=== PATIENT | male | born 1980 | race Hispanic/Latino ===

== ENCOUNTER 2022-06-29 08:42 | Day surgery (SDC) | payer OTHER ==
[2022-06-29] MEDS ORDERED: Bupivacaine/Epinephrine 0.25% 30 ML VIAL ONE (11:04)
[2022-06-29] MEDS ORDERED: Lidocaine 2% Jelly 5 ML TUBE ONE (11:04)
[2022-06-29] MEDS ORDERED: Midazolam HCl 2 mg/2 ml Vial ONE (11:07)
[2022-06-29] MEDS ORDERED: fentaNYL Citrate/PF 100 MCG/2 ML SYRINGE ONE (11:07)
[2022-06-29] MEDS ORDERED: Dexamethasone 20 MG/5 ML VIAL ONE (11:14)
[2022-06-29] MEDS ORDERED: Lidocaine 1% MPF 2 ML VIAL ONE (11:14)
[2022-06-29] MEDS ORDERED: Ondansetron PF 4 MG/2 ML Vial ONE (11:14)
[2022-06-29] MEDS ORDERED: PROPOFOL 200 MG/20 ML VIAL ONE (11:14)
[2022-06-29] MEDS ORDERED: cefOXitin 2 GM VIAL ONE (11:36)
[2022-06-29] MEDS ORDERED: Fentanyl 100 MCG/2 ML VIAL ONE (12:18)
[2022-06-29] MEDS ORDERED: HYDROcodone/Acetaminophen 5/325 mg Tablet ONE (13:08)
== END 2022-06-29 13:45 | disposition home or self-care (01) ==
LOC: SDC 08:42
PROVIDERS: ATTEND Surgery
PROC: 0D9P3ZX Drainage of Rectum, Percutaneous Approach, Diagnostic (ICD-10-PCS; principal; 2022-06-29)
DX: K61.1 Rectal abscess (principal); J45.909 Unspecified asthma, uncomplicated
CPT/HCPCS: 87070; 87205; J0694; J1100; J2250; J2405; J2704; J3010

== ENCOUNTER 2022-08-02 23:25 | Inpatient (IN) | payer OTHER ==
[2022-08-02] MEDS ORDERED: Magnesium 2 GM/50 ML BAG (IN WATER) ONE (23:46)
[2022-08-02] MEDS ORDERED: Terbutaline Sulfate 1 MG/ML VIAL ONE (23:46)
[2022-08-02] MEDS ORDERED: Albuterol Sulfate 2.5 mg/3 ml Neb ONE (23:58)
[2022-08-02] MEDS ORDERED: Albuterol Sulfate 2.5 mg/0.5 ml Neb ONE (23:58)
[2022-08-03] MEDS ORDERED: Ondansetron PF 4 MG/2 ML Vial IVP PRN (02:20)
[2022-08-03] MEDS ORDERED: Acetaminophen 325 MG TAB PO PRN (02:20)
[2022-08-03] MEDS ORDERED: Ondansetron ODT 4 MG TAB PO PRN (02:20)
[2022-08-03] MEDS ORDERED: Albuterol Sulfate 2.5 mg/3 ml Neb NEB PRN (02:21)
[2022-08-03] MEDS ORDERED: Ipratropium Bromide 2.5 ml Neb NEB PRN ×2 (02:21)
[2022-08-03] MEDS ORDERED: Albuterol Sulfate 2.5 mg/3 ml Neb ONE ×2 (03:11→06:14)
[2022-08-03] MEDS ORDERED: Ipratropium Bromide 2.5 ml Neb ONE ×5 (03:11→12:47)
[2022-08-03] MEDS ORDERED: Albuterol Sulfate 2.5 mg/0.5 ml Neb ONE ×2 (03:11→11:21)
[2022-08-03] MEDS: Ipratropium Bromide 2.5 ml Neb NEB SCH ×6 (03:15→19:06)
[2022-08-03] MEDS: Albuterol Sulfate 2.5 mg/3 ml Neb NEB SCH ×4 (03:16→15:05)
[2022-08-03 03:21] LABS: #Lymphocytes 0.5 thou/uL (1.20-3.40); #Neutrophils 11.7 thou/uL (1.40-6.50); %Basophils 0.1 % (0.0-1.0); %Eosinophils 0.1 % (0.0-10.0); %Lymphocytes 4.2 % (21.0-51.0); %Monocytes 0.3 % (0.0-10.0); %Neutrophils 95.3 % (42.0-75.0); Mean Corpuscular HGB CONC 33.1 g/dL (32.0-36.0); Mean Corpuscular Hemoglobin 30.2 pg (27.0-31.0); Mean Corpuscular Volume 91.2 fL (78.0-98.0); Mean Platelet Volume 7.5 fL (7.4-10.4); Platelet Count 208 thou/uL (130-400); RBC Distribution Width 12.7 % (11.5-14.5); White Blood Cell (WBC) Count 12.3 thou/uL (4.8-10.8)
[2022-08-03 03:34] LABS: Troponin I Less than 0.010 ng/mL (< 0.028)
[2022-08-03 03:48] LABS: ALT (SGPT) 22 U/L (8-55); AST (SGOT) 11 U/L (5-34); Albumin 4.1 g/dL (3.5-5.0); Alkaline Phosphatase 81 U/L (40-110); Anion Gap 22 mmol/L (10-20); BUN (Urea Nitrogen) 10 mg/dL (8.9-20.6); Bilirubin, Total 0.4 mg/dL (0.2-1.2); Calc. Creatinine Clearance 0 mL/min (70-130); Calcium 8.7 mg/dL (7.8-10.44); Carbon Dioxide 14 mmol/L (22-29); Chloride 105 mmol/L (98-107); Estimated GFR 73; Globulin 2.7 g/dL (2.4-3.5); Glucose 282 mg/dL (70-105); Potassium 3.5 mmol/L (3.5-5.1); Protein, Total 6.8 g/dL (6.0-8.3); Sodium 137 mmol/L (136-145)
[2022-08-03] MEDS: Lactated Ringer's 1,000 ML IV SCH ×4 (03:55→23:47)
[2022-08-03] MEDS ORDERED: Calcium Carbonate 500 MG ChewTAB PO PRN (04:52)
[2022-08-03] MEDS ORDERED: HumaLOG 300 UNITS/3 ML VIAL SC PRN ×2 (04:53)
[2022-08-03] MEDS ORDERED: Dextrose 5% in Water 1,000 ML IV PRN (04:53)
[2022-08-03] MEDS ORDERED: Dextrose 50% Abboject 50 ML SYRINGE SLOW IVP PRN (04:53)
[2022-08-03] MEDS ORDERED: Acetaminophen 325 MG TAB ONE (04:54)
[2022-08-03 06:16] LABS: Lactic Acid 6.6 mmol/L (0.5-2.2)
[2022-08-03] MEDS: Mometasone 200 MCG/Formoterol 5 MCG 120 PUFF INHALER INH SCH ×2 (07:53→19:06)
[2022-08-03] MEDS ORDERED: predniSONE 20 MG TAB ONE (08:35)
[2022-08-03] MEDS: predniSONE 20 MG TAB PO SCH (08:38)
[2022-08-03 08:44] VITALS: BMI 37.3
[2022-08-03] MEDS: Enoxaparin Sodium 40 MG/0.4 ML SYRINGE SC SCH (10:00)
[2022-08-03] MEDS ORDERED: Enoxaparin Sodium 40 MG/0.4 ML SYRINGE ONE (10:02)
[2022-08-03 10:03] LABS: Hemoglobin A1c 5.7 % (4.0-6.0)
[2022-08-03] MEDS ORDERED: Albuterol 200 PUFF (6.7GM INHALER) INH PRN (18:00)
[2022-08-03] MEDS: Albuterol 200 PUFF (6.7GM INHALER) INH SCH (19:05)
[2022-08-04] MEDS: Albuterol 200 PUFF (6.7GM INHALER) INH SCH ×5 (00:34→14:21)
[2022-08-04] MEDS: Ipratropium Bromide 2.5 ml Neb NEB SCH ×3 (00:40→12:07)
[2022-08-04 04:45] LABS: #Lymphocytes 1.7 thou/uL (1.20-3.40); #Monocytes 0.8 thou/uL (0.11-0.59); #Neutrophils 16.2 thou/uL (1.40-6.50); %Eosinophils 0.2 % (0.0-10.0); %Lymphocytes 9.2 % (21.0-51.0); %Monocytes 4.3 % (0.0-10.0); %Neutrophils 86.2 % (42.0-75.0); Hemoglobin 12.7 g/dL (14.0-18.0); Mean Corpuscular HGB CONC 33.4 g/dL (32.0-36.0); Mean Corpuscular Hemoglobin 30.4 pg (27.0-31.0); Mean Platelet Volume 7.7 fL (7.4-10.4); Platelet Count 229 thou/uL (130-400); RBC Distribution Width 12.7 % (11.5-14.5); Red Blood Cell (RBC) Count 4.17 mill/uL (4.70-6.10); White Blood Cell (WBC) Count 18.7 thou/uL (4.8-10.8)
[2022-08-04] MEDS: Lactated Ringer's 1,000 ML IV SCH ×2 (05:46→13:18)
[2022-08-04 06:06] LABS: ALT (SGPT) 21 U/L (8-55); AST (SGOT) 14 U/L (5-34); Albumin 3.6 g/dL (3.5-5.0); Alkaline Phosphatase 72 U/L (40-110); BUN (Urea Nitrogen) 14 mg/dL (8.9-20.6); Calc. Creatinine Clearance 171 mL/min (70-130); Calcium 8.9 mg/dL (7.8-10.44); Carbon Dioxide 24 mmol/L (22-29); Chloride 107 mmol/L (98-107); Estimated GFR 104; Globulin 2.5 g/dL (2.4-3.5); Glucose 125 mg/dL (70-105); Potassium 4.2 mmol/L (3.5-5.1); Protein, Total 6.1 g/dL (6.0-8.3); Sodium 138 mmol/L (136-145)
[2022-08-04] MEDS: Mometasone 200 MCG/Formoterol 5 MCG 120 PUFF INHALER INH SCH (07:04)
[2022-08-04 07:09] LABS: Anion Gap 11 mmol/L (10-20)
[2022-08-04 07:46] LABS: Bilirubin, Total 0.3 mg/dL (0.2-1.2)
[2022-08-04] MEDS ORDERED: Allopurinol 100 MG TAB PO SCH (09:00)
[2022-08-04] MEDS: Enoxaparin Sodium 40 MG/0.4 ML SYRINGE SC SCH (09:07)
[2022-08-04] MEDS: predniSONE 20 MG TAB PO SCH (09:07)
[2022-08-06] MEDS ORDERED: FLU VACC QS2022-23(6MOS UP)/PF 60 MCG/0.5 ML SYRINGE IM ONE (14:30)
[2022-08-07 10:54] VITALS: BP 168/80; TEMP 98
== END 2022-08-04 17:12 | disposition home or self-care (01) | DRG 189 ==
LOC: ERS 23:25 → ERHOLD 08-03 01:45 → 2NO 08-03 02:20
PROVIDERS: ADMIT Family Medicine; ATTEND Family Medicine
DX: J96.01 Acute respiratory failure with hypoxia (principal); J45.42 Moderate persistent asthma with status asthmaticus; M10.9 Gout, unspecified; E86.0 Dehydration; B97.4 Respiratory syncytial virus as the cause of diseases classified elsewhere; Z20.822 Contact with and (suspected) exposure to COVID-19; Z79.51 Long term (current) use of inhaled steroids; Z79.899 Other long term (current) drug therapy; Z98.890 Other specified postprocedural states
CPT/HCPCS: 36415; 36416; 80053; 83036; 83605; 84145; 84484; 85025; 87040; 87077; 87149; 87633; 93005; 94644; 96365; 96372; J1650; J3105; J3475; J7120; J7512; J7611; U0003; U0005

== ENCOUNTER 2024-07-01 15:49 | Inpatient (IN) | payer OTHER ==
[~2024-07-01 15:49] MED LIST: Iopamidol-370 76% 500 ML MDV (1 ML CHARGE) ONE
[2024-07-01] MEDS ORDERED: diphenhydrAMINE 50 MG/ML VIAL ONE (19:26)
[2024-07-01] MEDS ORDERED: Dicyclomine 20 MG TAB ONE (19:26)
[2024-07-01] MEDS ORDERED: Metoclopramide HCl 10 MG (2 mL) VIAL ONE (19:26)
[2024-07-01 20:49] LABS: #Basophils 0.08 10x3/uL (0.0-0.2); %Basophils 0.6 % (0.0-1.0); %Lymphocytes 14.3 % (21.0-51.0); %Monocytes 4.7 % (0.0-10.0); Hematocrit 44.8 % (42.0-52.0); Hemoglobin 14.6 g/dL (14.0-18.0); Mean Corpuscular HGB CONC 32.6 g/dL (32.0-36.0); Mean Corpuscular Hemoglobin 29.6 pg (27.0-31.0); Mean Corpuscular Volume 90.7 fL (78.0-98.0); Mean Platelet Volume 9.7 fL (7.4-10.4); Platelet Count 231 10x3/uL (130-400); RBC Distribution Width 13.6 % (11.5-14.5); Red Blood Cell (RBC) Count 4.94 mill/uL (4.70-6.10)
[2024-07-01 21:08] LABS: ALT (SGPT) 16 U/L (8-55); AST (SGOT) 12 U/L (5-34); Albumin 3.3 g/dL (3.5-5.0); Alkaline Phosphatase 69 U/L (40-110); Anion Gap 13 mmol/L (10-20); BUN (Urea Nitrogen) 8 mg/dL (8.9-20.6); Bilirubin, Total 0.6 mg/dL (0.2-1.2); Calcium 8.7 mg/dL (7.8-10.44); Carbon Dioxide 23 mmol/L (22-29); Chloride 109 mmol/L (98-107); Globulin 2.6 g/dL (2.4-3.5); Glucose 105 mg/dL (70-105); Lipase 21 U/L (8-78); Magnesium 1.7 mg/dL (1.6-2.6); Protein, Total 5.9 g/dL (6.0-8.3); Sodium 141 mmol/L (136-145)
[2024-07-01 21:25] LABS: Calc. Creatinine Clearance 0 mL/min (70-130); Estimated GFR 72
[2024-07-01] MEDS ORDERED: Piperacillin/Tazobactam 4.5 GM VIAL ONE (22:01)
[2024-07-01] MEDS ORDERED: Sodium Chloride 0.9% 100 ML ONE (22:01)
[2024-07-01 22:34] LABS: Bacteria/HPF None Seen HPF (None Seen); Bilirubin Negative (Negative); Blood, Urine Negative (Negative); CAUTI Indications for Culture Pelvic or flank pain; Clarity Clear (Clear); Glucose, Urine (Dipstick) Normal (Negative); Ketone, Urine Trace mg/dL (Negative); Leukocyte Negative Leu/uL (Negative); Nitrite Negative (Negative); Protein, Urine (Dipstick) Negative (Neg-Trace); RBC/HPF 0-3 HPF (0-3); Squamous Epithelial 0-3 HPF (0-3); Urobilinogen Normal mg/dL (Less than 2); WBC/HPF 0-3 HPF (0-3); pH, Urine 5.5 (5.0-9.0)
[2024-07-01 23:03] LABS: Specific Gravity, Urine 1.062 (1.002-1.036)
[2024-07-01 23:04] LABS: Urine Culture Reflex No No
[2024-07-02] MEDS ORDERED: Acetaminophen 325 MG TAB PO PRN (00:15)
[2024-07-02] MEDS ORDERED: Dextrose 50% Abboject 50 ML SYRINGE SLOW IVP PRN (00:19)
[2024-07-02] MEDS ORDERED: Insulin Regular, Human 100 UNIT/ML 10 ML VIAL SC PRN ×2 (00:19)
[2024-07-02] MEDS ORDERED: Glucagon 1 MG/ML KIT IM PRN (00:19)
[2024-07-02] MEDS ORDERED: Dextrose 5% in Water 1,000 ML IV PRN (00:19)
[2024-07-02] MEDS ORDERED: Albuterol 2.5 MG (3 mL) NEB NEB PRN (00:36)
[2024-07-02 00:54] VITALS: BMI 39.2
[2024-07-02] MEDS: Sodium Chloride 0.9% 1,000 ML IV SCH (00:58)
[2024-07-02] MEDS: Ondansetron PF 4 MG/2 ML Vial IVP PRN (00:58)
[2024-07-02] MEDS: Pantoprazole 40 MG VIAL IVP SCH ×2 (00:58→08:30)
[2024-07-02] MEDS: Piperacillin/Tazobactam 3.375 GM in Sodium Chloride 0.9% 100 ML IVPB SCH (02:54)
[2024-07-02 06:01] LABS: #Basophils 0.07 10x3/uL (0.0-0.2); %Basophils 0.6 % (0.0-1.0); %Eosinophils 18.9 % (0.0-10.0); %Lymphocytes 16.1 % (21.0-51.0); %Monocytes 4.7 % (0.0-10.0); %Neutrophils 59.4 % (42.0-75.0); Hematocrit 43.2 % (42.0-52.0); Hemoglobin 14.1 g/dL (14.0-18.0); Mean Corpuscular HGB CONC 32.6 g/dL (32.0-36.0); Mean Corpuscular Hemoglobin 29.1 pg (27.0-31.0); Mean Corpuscular Volume 89.1 fL (78.0-98.0); Mean Platelet Volume 9.7 fL (7.4-10.4); Platelet Count 238 10x3/uL (130-400); RBC Distribution Width 13.7 % (11.5-14.5); Red Blood Cell (RBC) Count 4.85 mill/uL (4.70-6.10)
[2024-07-02 06:17] LABS: ALT (SGPT) 13 U/L (8-55); AST (SGOT) 11 U/L (5-34); Albumin 3.1 g/dL (3.5-5.0); Alkaline Phosphatase 67 U/L (40-110); Anion Gap 13 mmol/L (10-20); BUN (Urea Nitrogen) 8 mg/dL (8.9-20.6); Bilirubin, Total 0.7 mg/dL (0.2-1.2); Calc. Creatinine Clearance 152 mL/min (70-130); Calcium 8.3 mg/dL (7.8-10.44); Carbon Dioxide 23 mmol/L (22-29); Chloride 109 mmol/L (98-107); Estimated GFR 83; Globulin 2.4 g/dL (2.4-3.5); Glucose 112 mg/dL (70-105); Potassium 3.9 mmol/L (3.5-5.1); Protein, Total 5.5 g/dL (6.0-8.3); Sodium 141 mmol/L (136-145)
[2024-07-02] MEDS ORDERED: Pantoprazole 40 MG VIAL IVP SCH (09:00)
[2024-07-02] MEDS: Morphine 4 MG/ML VIAL SLOW IVP PRN (10:51)
[2024-07-03 05:40] LABS: #Basophils 0.07 10x3/uL (0.0-0.2); %Basophils 0.6 % (0.0-1.0); %Eosinophils 21.7 % (0.0-10.0); %Lymphocytes 18.3 % (21.0-51.0); %Monocytes 4.6 % (0.0-10.0); %Neutrophils 54.5 % (42.0-75.0); Hemoglobin 14.1 g/dL (14.0-18.0); Mean Corpuscular HGB CONC 33.6 g/dL (32.0-36.0); Mean Corpuscular Hemoglobin 29.2 pg (27.0-31.0); Mean Platelet Volume 10.2 fL (7.4-10.4); Platelet Count 205 10x3/uL (130-400); RBC Distribution Width 13.6 % (11.5-14.5); Red Blood Cell (RBC) Count 4.83 mill/uL (4.70-6.10)
[2024-07-03 06:28] LABS: ALT (SGPT) 13 U/L (8-55); AST (SGOT) 15 U/L (5-34); Alkaline Phosphatase 59 U/L (40-110); Anion Gap 11 mmol/L (10-20); BUN (Urea Nitrogen) 7 mg/dL (8.9-20.6); Bilirubin, Total 0.7 mg/dL (0.2-1.2); Calc. Creatinine Clearance 163 mL/min (70-130); Calcium 8.2 mg/dL (7.8-10.44); Carbon Dioxide 24 mmol/L (22-29); Chloride 109 mmol/L (98-107); Estimated GFR 91; Globulin 2.3 g/dL (2.4-3.5); Glucose 102 mg/dL (70-105); Potassium 3.8 mmol/L (3.5-5.1); Protein, Total 5.3 g/dL (6.0-8.3); Sodium 140 mmol/L (136-145)
[2024-07-03 12:38] LABS: Campy jejuni + coli by PCR Negative (Negative); STEC Shiga Toxin 1+2 Negative (Negative); Salmonella spp. by PCR Negative (Negative); Shigella spp + EIEC by PCR Negative (Negative)
[2024-07-05 06:12] LABS: #Basophils 0.06 10x3/uL (0.0-0.2); %Basophils 0.6 % (0.0-1.0); %Eosinophils 24.6 % (0.0-10.0); %Monocytes 5.2 % (0.0-10.0); %Neutrophils 49.3 % (42.0-75.0); Hematocrit 41.3 % (42.0-52.0); Hemoglobin 13.9 g/dL (14.0-18.0); Mean Corpuscular HGB CONC 33.7 g/dL (32.0-36.0); Mean Corpuscular Hemoglobin 28.9 pg (27.0-31.0); Mean Corpuscular Volume 85.9 fL (78.0-98.0); Mean Platelet Volume 10.1 fL (7.4-10.4); Platelet Count 249 10x3/uL (130-400); RBC Distribution Width 13.3 % (11.5-14.5); Red Blood Cell (RBC) Count 4.81 mill/uL (4.70-6.10)
[2024-07-05 06:46] LABS: HBCM Index 0.18 S/CO (0-0.79); HBsAg Index 0.34 S/CO (0-0.99); HIV (1/2) Antibody/Antigen NONREACTIVE (NonReactive); HIV 1/2 INDEX 0.05 S/CO (<1.00); Hep A IgM AB NONREACTIVE (NonReactive); Hep A IgM S/CO 0.22 S/CO (0-0.79); Hep B Surf Ag NONREACTIVE S/CO (NonReactive); Hep C IgG Ab NONREACTIVE S/CO (NonReactive); Hep C Index 0.05 S/CO (0-0.79); Hepatitis B Core IgM Abs NONREACTIVE S/CO (NonReactive)
[2024-07-05 06:57] LABS: Anion Gap 10 mmol/L (10-20); BUN (Urea Nitrogen) 7 mg/dL (8.9-20.6); Calc. Creatinine Clearance 168 mL/min (70-130); Calcium 8.2 mg/dL (7.8-10.44); Carbon Dioxide 25 mmol/L (22-29); Chloride 108 mmol/L (98-107); Estimated GFR 95; Glucose 93 mg/dL (70-105); Potassium 3.7 mmol/L (3.5-5.1); Sodium 139 mmol/L (136-145)
[2024-07-05] MEDS: Lidocaine 2% Viscous Solution 10 ML, Aluminum & Magnesium Hydroxide 30 ML SSW SCH (14:50)
[2024-07-06 05:27] LABS: Hematocrit 38.7 % (42.0-52.0); Hemoglobin 13.1 g/dL (14.0-18.0); Mean Corpuscular HGB CONC 33.9 g/dL (32.0-36.0); Mean Corpuscular Hemoglobin 29.5 pg (27.0-31.0); Mean Corpuscular Volume 87.2 fL (78.0-98.0); Mean Platelet Volume 9.5 fL (7.4-10.4); Platelet Count 245 10x3/uL (130-400); RBC Distribution Width 13.6 % (11.5-14.5); Red Blood Cell (RBC) Count 4.44 mill/uL (4.70-6.10)
[2024-07-06 05:34] LABS: Anion Gap 10 mmol/L (10-20); BUN (Urea Nitrogen) 7 mg/dL (8.9-20.6); Calc. Creatinine Clearance 187 mL/min (70-130); Calcium 8.5 mg/dL (7.8-10.44); Carbon Dioxide 24 mmol/L (22-29); Chloride 110 mmol/L (98-107); Estimated GFR 107; Glucose 93 mg/dL (70-105); Potassium 3.8 mmol/L (3.5-5.1); Sodium 140 mmol/L (136-145)
[2024-07-06 06:05] LABS: Anisocytosis SLIGHT = 6-15 cells HPF (0-5); Eosinophils 29 % (0-10); Lymphocytes 16 % (21-51); Macrocytosis SLIGHT = 6-15 cells HPF (0-5); Monocytes 3 % (0-10); Neutrophil 50 % (42-75); Ovalocytes SLIGHT = 2-5 cells HPF (0-1); Platelet Adequacy Comment Platelets Normal; Reactive Lymphocytes 2 % (0-10); Smudge Cells 9.1 %
[2024-07-06] MEDS: Allopurinol 100 MG TAB PO SCH (08:58)
[2024-07-06 09:27] VITALS: BP 121/80; TEMP 98.2
== END 2024-07-06 11:51 | disposition home or self-care (01) | DRG 392 ==
LOC: ERS 15:49 → SURG A 23:15 → OBSVTOIN 07-02 10:19
PROVIDERS: ADMIT Internal Medicine; ATTEND Internal Medicine
DX: K52.9 Noninfective gastroenteritis and colitis, unspecified (principal); K92.0 Hematemesis; E88.09 Other disorders of plasma-protein metabolism, not elsewhere classified; E11.9 Type 2 diabetes mellitus without complications; K20.90 Esophagitis, unspecified without bleeding; K29.70 Gastritis, unspecified, without bleeding; J45.20 Mild intermittent asthma, uncomplicated; M1A.09X0 Idiopathic chronic gout, multiple sites, without tophus (tophi); E66.9 Obesity, unspecified; Z79.899 Other long term (current) drug therapy; Z79.51 Long term (current) use of inhaled steroids; Z79.52 Long term (current) use of systemic steroids; Z68.39 Body mass index [BMI] 39.0-39.9, adult
CPT/HCPCS: 36415; 36416; 74177; 80048; 80053; 80074; 81001; 83605; 83690; 83735; 85025; 87040; 87324; 87328; 87329; 87389; 87449; 87505; 93005; 96374; 96375; 96376; G0378; J1200; J2272; J2405; J2470; J2543; J2765; J7030; Q9967